=== PATIENT | female | born 1995 | race Caucasian/White ===

== ENCOUNTER 2020-02-02 16:15 | Emergency (ER) | payer OTHER ==
[~2020-02-02] VITALS: Ht 167 cm; Wt 86.0 kg
[2020-02-02] MEDS ORDERED: ORPHENADRINE 60 MG/2 ML (NORFLEX) AMP IM STA (16:35)
[2020-02-02] MEDS ORDERED: KETOROLAC 60 MG/2 ML VIAL IM STA (16:35)
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
[2020-02-02] MEDS ORDERED: CYCL10TA9 PO (17:16)
[2020-02-02 17:20] VITALS: BP 139/95
== END 2020-02-02 17:25 | disposition home or self-care (01) ==
LOC: ER 16:17
DX: S09.90XA Unspecified injury of head, initial encounter (principal); S16.1XXA Strain of muscle, fascia and tendon at neck level, initial encounter; S80.212A Abrasion, left knee, initial encounter; M25.512 Pain in left shoulder; R40.2142 Coma scale, eyes open, spontaneous, at arrival to emergency department; R40.2252 Coma scale, best verbal response, oriented, at arrival to emergency department; R40.2362 Coma scale, best motor response, obeys commands, at arrival to emergency department; V49.40XA Driver injured in collision with unspecified motor vehicles in traffic accident, initial encounter; Y92.410 Unspecified street and highway as the place of occurrence of the external cause
CPT/HCPCS: 70450; 72125; 96372

== ENCOUNTER 2023-02-28 02:09 | Emergency (ER) | payer BC ==
[~2023-02-28 02:09] MED LIST: CYCL10TA25 PO
--- NOTE | 2023-02-28 02:41 | ED General ---
General Chief Complaint: Psych/Social Disorder Stated Complaint: POSS ACID REFLUX,HEART RACING,PINS & NEEDLES,NAUSE Source of Information: Patient History of Present Illness Date Seen by Provider: Feb 28, 2023 Time Seen by Provider: 02:24 Initial Comments PT ARRIVES VIA POV FROM HOME SHE STATES FOR THE LAST SEVERAL DAYS SHE HAS HAD: -"WHOLE BODY FEELS NUMB AND TINGLY" -"PINS AND NEEDLES START AT THE TOP OF MY HEAD AND GO DOWN MY WHOLE BODY' -"MY FACE WAS GETTING REALLY FLUSHED" -"HEART RACING" -"HEARTBURN" " ACID REFLUX" NO PAIN ANYWHERE NO DIZZINESS OR SYNCOPE NO CHEST PAIN NO SHORTNESS OF BREATH NO NAUSEA OR VOMITING. DECREASED APPETITE TODAY, ONLY ATE A LITTLE BIT EARLIER TODAY. SHE HAS BEEN DRINKING SOME FLUIDS BUT NOT MUCH NORMAL NO OVER THE COUNTER MEDICATIONS OTHER THAN OCCASIONAL IBUPROFEN SHE HAD 1 CUP OF COFFEE AT 0800 THIS MORNING, OTHERWISE NO CAFFEINE INTAKE, NO POP OR ENERGY DRINKS. SYMPTOMS ARE NO DIFFERENT TONIGHT HAS NOT SOUGHT CARE UNTIL TONIGHT. SHE HAS HAD SIMILAR SYMPTOMS, BUT NOT THIS BAD PT HAS ANXIETY AND DEPRESSION AND HAS BEEN PRESCRIBED: -TRILEPTAL -HYDROXYZINE -PRAZOSIN -PRISTIQ SHE QUIT TAKING HER MEDICATIONS A FEW MONTHS AGO, THEN STARTED TAKING TRILEPTAL, HYDROXYZINE AND PRAZOSIN AGAIN, BUT NEVER RESTARTED THE PRISTIQ SHE TAKES 1 HYDROXYZINE AND 1 PRAZOSIN AT NIGHT. SHE TOOK THEM BOTH 4-5 HOURS AGO. SHE DOES NOT TAKE THEM AT ANY OTHER TIME DURING THE DAY. SHE IS SUPPOSED TO TAKE TRILEPTAL TWICE A DAY BUT HAS ONLY BEEN TAKING IT ONCE A DAY, AT NIGHT WITH THE HYDROXYZINE AND PRAZOSIN. SHE SEES PROVIDER RAJEEV AT [facility]. SHE HAS NOT BEEN THERE RECENTLY-- LAST VISIT WAS "A COUPLE OF MONTHS AGO". MISSED HER APPOINTMENT A COUPLE OF WEEKS AGO, RESCHEDULED FOR LATER IN FEBRUARY. STATES SHE HAS BEEN UNDER ALOT OF STRESS THE LAST SEVERAL DAYS--AT WORK AND HOME. 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 NO CONTROL. NO PRIOR PREGNANCIES [facility] Geoffrey ADI[facility] Allergies and Home Medications Allergies Coded Allergies: No Known Drug Allergies (Unverified , 02/02/20) Patient Home Medication List Home Medication List Reviewed: Yes Cyclobenzaprine HCl (Cyclobenzaprine HCl) 10 Mg Tablet, 10 MG PO Q8H PRN for SPASMS Prescribed by: NEVAEH MALIN on 02/02/20 171 Pantoprazole Sodium (Protonix) 40 Mg Tablet.dr, 40 MG PO DAILY Prescribed by: RANJAN PINZON on 02/28/23 0403 Review of Systems Review of Systems Constitutional: no symptoms reported EENTM: no symptoms reported Respiratory: no symptoms reported Cardiovascular: see HPI Gastrointestinal: see HPI Genitourinary: no symptoms reported LMP: January 26, 2023 Musculoskeletal: no symptoms reported Skin: no symptoms reported Psychiatric/Neurological: See HPI Hematologic/Lymphatic: No Symptoms Reported Immunological/Allergic: no symptoms reported Past Btjnehw-Nslbrs-Xsrogq Hx Patient Social History Tobacco Use?: Yes Tobacco type used: Cigarettes Smoking Status: Current Everyday Smoker Use of E-Cig and/or Vaping dev: Yes E-Cig or Vaping type used: Nicotine Use of E-Cig and/or Vaping Jayme: Current Everyday User Substance use?: No Additional substance use comme: DENIES Alcohol Use?: No Immunizations Up To Date Tetanus Booster (TDap): Unknown Past Medical History Surgeries: Yes (WISDOM TEETH) Respiratory: No Cardiac: No Neurological: No Reproductive Disorders: No Female Reproductive Disorders: Ovarian Cyst, Polycystic Ovarian Dis Genitourinary: No Gastrointestinal: No Musculoskeletal: No Endocrine: No HEENT: Yes (GLASSES AMBYLOPIA) Cancer: No Psychosocial: Yes Sleep Difficulties, Anxiety, Depression Integumentary: No Blood Disorders: No Family Medical History No Pertinent Family Hx Physical Exam Vital Signs Vital Signs - First Documented 02/28/23 02:23 Temp 36.4 Pulse 128 Resp 18 B/P (MAP) 128/97 (107) Pulse Ox 100 O2 Delivery Room Air Capillary Refill : Height, Weight, BMI Height: '" Weight: lbs. oz. kg; 30.00 BMI Method: General Appearance: No Apparent Distress, WD/WN, Anxious HEENT: No Pale Conjunctivae (L), No Pale Conjunctivae (R) Neck: Normal Inspection Respiratory: Normal Breath Sounds, No Accessory Muscle Use, No Respiratory Distress Cardiovascular: No Edema, No JVD, No Murmur, Normal Peripheral Pulses, Tachycardia (120'S) Gastrointestinal: Non Tender, Soft Extremity: Normal Inspection Neurologic/Psychiatric: Alert, Oriented x3, No Motor/Sensory Deficits, tubing tester II- XII Norm as Tested Skin: Normal Color, Warm/Dry Progress/Results/Core Measures Suspected Sepsis SIRS Temperature: Pulse: Respiratory Rate: Laboratory Tests 02/28/23 02:53: White Blood Count 7.6 Blood Pressure / Mean: Laboratory Tests 02/28/23 02:53: Creatinine 0.71, Platelet Count 264, Total Bilirubin 0.3 Results/Orders Lab Results Laboratory Tests Test 02/28/23 02:33 02/28/23 02:46 02/28/23 02:53 Range/Units Influenza Type A (RT-PCR) Not Detected Not Detecte Influenza Type B (RT-PCR) Not Detected Not Detecte SARS-CoV-2 RNA (RT-PCR) Not Detected Not Detecte Urine Color YELLOW Urine Clarity CLEAR Urine pH 6.0 5-9 Urine Specific [place] <=1.005 1.016-1.022 Urine Protein NEGATIVE NEGATIVE Urine Glucose (UA) NEGATIVE NEGATIVE Urine Ketones NEGATIVE NEGATIVE Urine Nitrite NEGATIVE NEGATIVE Urine Bilirubin NEGATIVE NEGATIVE Urine Urobilinogen 0.2 < = 1.0 MG/DL Urine Leukocyte Esterase NEGATIVE NEGATIVE Urine RBC (Auto) NEGATIVE NEGATIVE Urine RBC NONE /HPF Urine WBC NONE /HPF Urine Squamous Epithelial Cells 0-2 /HPF Urine Crystals NONE /LPF Urine Bacteria TRACE /HPF Urine Casts NONE /LPF Urine Mucus NEGATIVE /LPF Urine Culture Indicated NO Urine Opiates Screen NEGATIVE NEGATIVE Urine Oxycodone Screen NEGATIVE NEGATIVE Urine Methadone Screen NEGATIVE NEGATIVE Urine Propoxyphene Screen NEGATIVE NEGATIVE Urine Barbiturates Screen NEGATIVE NEGATIVE Ur Tricyclic Antidepressants Screen NEGATIVE NEGATIVE Urine Phencyclidine Screen NEGATIVE NEGATIVE Urine Amphetamines Screen NEGATIVE NEGATIVE Urine Methamphetamines Screen NEGATIVE NEGATIVE Urine Benzodiazepines Screen NEGATIVE NEGATIVE Urine Cocaine Screen NEGATIVE NEGATIVE Urine Cannabinoids Screen NEGATIVE NEGATIVE White Blood Count 7.6 4.3-11.0 10^3/uL Red Blood Count 4.32 3.80-5.11 10^6/uL Hemoglobin 12.7 11.5-16.0 g/dL Hematocrit 38 35-52 % Mean Corpuscular Volume 87 80-99 fL Mean Corpuscular Hemoglobin 29 25-34 pg Mean Corpuscular Hemoglobin Concent 34 32-36 g/dL Red Cell Distribution Width 14.0 10.0-14.5 % Platelet Count 264 130-400 10^3/uL Mean Platelet Volume 10.2 9.0-12.2 fL Immature Granulocyte % (Auto) 0 % Neutrophils (%) (Auto) 72 42-75 % Lymphocytes (%) (Auto) 20 12-44 % Monocytes (%) (Auto) 8 0-12 % Eosinophils (%) (Auto) 0 0-10 % Basophils (%) (Auto) 0 0-10 % Neutrophils # (Auto) 5.4 1.8-7.8 10^3/uL Lymphocytes # (Auto) 1.5 1.0-4.0 10^3/uL Monocytes # (Auto) 0.6 0.0-1.0 10^3/uL Eosinophils # (Auto) 0.0 0.0-0.3 10^3/uL Basophils # (Auto) 0.0 0.0-0.1 10^3/uL Immature Granulocyte # (Auto) 0.0 0.0-0.1 10^3/uL Sodium Level 138 135-145 MMOL/L Potassium Level 3.6 3.6-5.0 MMOL/L Chloride Level 106 98-107 MMOL/L Carbon Dioxide Level 21 21-32 MMOL/L Anion Gap 11 5-14 MMOL/L Blood Urea Nitrogen 7 7-18 MG/DL Creatinine 0.71 0.60-1.30 MG/DL Estimat Glomerular Filtration Rate 120 BUN/Creatinine Ratio 10 Glucose Level 128 H 70-105 MG/DL Calcium Level 9.1 8.5-10.1 MG/DL Corrected Calcium 8.8 8.5-10.1 MG/DL Magnesium Level 1.7 1.6-2.4 MG/DL Total Bilirubin 0.3 0.1-1.0 MG/DL Aspartate Amino Transf (AST/SGOT) 14 5-34 U/L Alanine Aminotransferase (ALT/SGPT) 18 0-55 U/L Alkaline Phosphatase 70 40-136 U/L Total Protein 7.1 6.4-8.2 GM/DL Albumin 4.4 3.2-4.5 GM/DL TSH [place] Testing 1.69 0.35-4.94 UIU/ML Acetaminophen Level < 10 L 10-30 UG/ML Serum Alcohol < 10 <10 MG/DL My Orders Orders - RANJAN PINZON DO Ed Iv/Invasive Line Start (02/28/23 02:29) Urine Bedside (02/28/23 02:29) Ekg Tracing (02/28/23 02:29) Monitor-Rhythm Ecg Trace Only (02/28/23 02:29) Acetaminophen (02/28/23 02:29) Alcohol (02/28/23 02:29) Cbc With Automated Diff (02/28/23 02:29) Comprehensive Metabolic Panel (02/28/23 02:29) Drug Screen Stat (Urine) (02/28/23 02:29) Magnesium (02/28/23 02:29) Thyroid Analyzer (02/28/23 02:29) Ua Culture If Indicated (02/28/23 02:29) Covid 19 Inhouse Test (02/28/23 02:29) Influenza A And B By Pcr (02/28/23 02:29) Ed Iv/Invasive Line Start (02/28/23 02:52) Lactated Ringers (Lr 1000 Ml Iv Solution (02/28/23 03:00) Pantoprazole Injection (Protonix Injecti (02/28/23 03:00) Medications Given in ED Current Medications Medications Dose Ordered Sig/Humaira Route Start Time Stop Time Status Last Admin Dose Admin Lactated Ringer's 1,000 ml @ 0 mls/hr Q0M ONCE IV 02/28/23 03:00 02/28/23 03:01 DC 02/28/23 03:01 999 MLS/HR Pantoprazole 40 mg ONCE ONCE IV 02/28/23 03:00 02/28/23 03:01 DC 02/28/23 03:02 40 MG Vital Signs/I&O 02/28/23 02/28/23 02:23 04:08 Temp 36.4 Pulse 128 99 Resp 18 16 B/P (MAP) 128/97 (107) 138/94 Pulse Ox 100 97 O2 Delivery Room Air Room Air Capillary Refill : Progress Note : Progress Note GIVEN: -IV FLUIDS -PROTONIX SYMPTOMS RESOLVED DURING ER STAY HR DOWN TO 100 OR LESS. BP STABLE UNEVENTFUL ER STAY LABS ALL ESSENTIALLY NORMAL EKG SHOWS SINUS TACH BUT IS OTHERWISE UNREMARKABLE DISCUSSED TEST RESULTS, ANTICIPATED COURSE, SYMPTOMATIC TREATMENT, MEDICATIONS AND IMPORTANCE OF TAKING THEM PRESCRIBED, NEED FOR FOLLOW UP AND RETURN P RECAUTIONS. PRIOR RECORDS REVIEWED--SINGLE ER VISIT IN 2019 FOR UNRELATED COMPLAINT. ECG Initial ECG Impression Date: Feb 28, 2023 Initial ECG Impression Time: 02:38 Initial ECG Rate: 118 Initial ECG Rhythm: S.Tach Initial ECG Intervals [place] 158 QRS 81 QT/QTQC 322/392 Initial ECG Impression: Nonspecific Changes Initial ECG Comparisson: No Previous ECG Available Departure Impression Primary Impression: Anxiety Additional Impression: GERD SYMPTOMS Disposition: HOME, SELF-CARE Condition: Stable Departure-Patient Inst. Decision time for Depature: 03:57 Referrals: [facility] (PCP/Family) Primary Care Physician Patient Instructions: Acid Reflux and GERD in Adults (DC), Anxiety, Adult (DC) Add. Discharge Instructions: HOME, REST YOU MAY TAKE HYDROXYZINE EVERY 6 HOURS NEEDED FOR ANXIETY CONTINUE YOUR REGULAR MEDICATIONS EXACTLY PRESCRIBED INCREASE YOUR FLUID INTAKE AVOID ANY CAFFEINE OR ENERGY DRINKS FOLLOW UP WITH MENTAL HEALTH THIS WEEK --CALL ON THURSDAY TO MAKE AN APPOINTMENT All discharge instructions reviewed with patient and/or family. Voiced understanding. Scripts Pantoprazole Sodium (Protonix) 40 Mg Tablet. 40 MG PO DAILY, #15 TAB Prov: RANJAN PINZON DO 02/28/23 RANJAN PINZON DO Feb 28, 2023 02:41
[2023-02-28 02:53] LABS: BILIRUBIN,URINE NEGATIVE (NEGATIVE); CLARITY,URINE CLEAR; COLOR,URINE YELLOW; GLUCOSE, URINE (UA) NEGATIVE (NEGATIVE); KETONES,URINE NEGATIVE (NEGATIVE); LEUKOCYTE ESTERASE ,URINE NEGATIVE (NEGATIVE); NITRITE,URINE NEGATIVE (NEGATIVE); PROTEIN,URINE NEGATIVE (NEGATIVE)
[2023-02-28] MEDS ORDERED: PANTOPRAZOLE 40 MG (PROTONIX) VIAL IV ONE (03:00)
[2023-02-28] MEDS ORDERED: LACTATED RINGERS 1,000 ML IV ONE (03:00)
[2023-02-28 03:01] LABS: BASOPHILS % (AUTO) 0 % (0-10); EOSINOPHILS % (AUTO) 0 % (0-10); HEMATOCRIT 38 % (35-52); HEMOGLOBIN 12.7 g/dL (11.5-16.0); LYMPHOCYTES # (AUTO) 1.5 10^3/uL (1.0-4.0); LYMPHOCYTES % (AUTO) 20 % (12-44); MEAN CORPUSCULAR HEMOGLOBIN 29 pg (25-34); MEAN CORPUSCULAR HGB CONC 34 g/dL (32-36); MEAN CORPUSCULAR VOLUME 87 fL (80-99); MEAN PLATELET VOLUME 10.2 fL (9.0-12.2); MONOCYTES # (AUTO) 0.6 10^3/uL (0.0-1.0); MONOCYTES % (AUTO) 8 % (0-12); NEUTROPHILS # (AUTO) 5.4 10^3/uL (1.8-7.8); NEUTROPHILS % (AUTO) 72 % (42-75); PLATELET COUNT 264 10^3/uL (130-400); WHITE BLOOD COUNT 7.6 10^3/uL (4.3-11.0)
[2023-02-28 03:08] LABS: BACTERIA,URINE TRACE /HPF; SQUAMOUS EPITHELIAL CELL,UR 0-2 /HPF
[2023-02-28 03:09] LABS: AMPHETAMINE SCREEN, URINE NEGATIVE (NEGATIVE); BARBITURATE SCREEN URINE NEGATIVE (NEGATIVE); BENZODIAZEPINES SCREEN URINE NEGATIVE (NEGATIVE); CANNABINOID SCREEN, URINE NEGATIVE (NEGATIVE); COCAINE SCREEN URINE NEGATIVE (NEGATIVE); METHADONE STAT NEGATIVE (NEGATIVE); OPIATE SCREEN URINE NEGATIVE (NEGATIVE); OXYCODONE STAT NEGATIVE (NEGATIVE); PROPOXYPHENE STAT NEGATIVE (NEGATIVE); TRICYCLIC ANTIDEPRESSANTS SCRE NEGATIVE (NEGATIVE)
[2023-02-28 03:14] LABS: CHLORIDE 106 MMOL/L (98-107); POTASSIUM 3.6 MMOL/L (3.6-5.0); SODIUM 138 MMOL/L (135-145)
[2023-02-28 03:15] LABS: ALBUMIN 4.4 GM/DL (3.2-4.5)
[2023-02-28 03:16] LABS: CALCIUM 9.1 MG/DL (8.5-10.1)
[2023-02-28 03:17] LABS: GLUCOSE 128 MG/DL (70-105); TOTAL PROTEIN 7.1 GM/DL (6.4-8.2)
[2023-02-28 03:18] LABS: CARBON DIOXIDE 21 MMOL/L (21-32)
[2023-02-28 03:19] LABS: BILIRUBIN,TOTAL 0.3 MG/DL (0.1-1.0)
[2023-02-28 03:21] LABS: ALKALINE PHOSPHATASE 70 U/L (40-136); CREATININE SERUM 0.71 MG/DL (0.60-1.30); GFR ESTIMATED 120
[2023-02-28 03:22] LABS: BUN/CREATININE RATIO 10
[2023-02-28 03:23] LABS: ACETAMINOPHEN < 10 UG/ML (10-30)
[2023-02-28 03:24] LABS: ALANINE AMINOTRANSFERASE 18 U/L (0-55); MAGNESIUM 1.7 MG/DL (1.6-2.4)
[2023-02-28 03:44] LABS: TSH (THYROID ANALYZER) 1.69 UIU/ML (0.35-4.94)
[2023-02-28] MEDS ORDERED: PANT40TA2 PO (04:03)
[2023-02-28 04:08] VITALS: BP 138/94
== END 2023-02-28 04:19 | disposition home or self-care (01) ==
LOC: EDUNIT# 02:09 → ER 02:15
DX: F41.9 Anxiety disorder, unspecified (principal); R12 Heartburn; F32.A Depression, unspecified; F17.210 Nicotine dependence, cigarettes, uncomplicated; F17.290 Nicotine dependence, other tobacco product, uncomplicated; Z79.899 Other long term (current) drug therapy; Z20.822 Contact with and (suspected) exposure to COVID-19; Z28.310 Unvaccinated for COVID-19
CPT/HCPCS: 80053; 80306; 81000; 83735; 84443; 84703; 85025; 87636; 93041; 99283; G0480 ×2; 36415; 80320; 80329